=== PATIENT | male | born 1985 | race Caucasian/White ===

== ENCOUNTER 2019-10-23 06:36 | Day surgery (SDC) | payer OTHER ==
[2019-10-16 09:11] LABS: ABSOLUTE BASOPHILS # (AUTO) 0.1 10^3/uL (0.0-0.2); ABSOLUTE EOSINOPHILS # (AUTO) 0.3 10^3/uL (0.0-0.6); ABSOLUTE LYMPHOCYTES (AUTO) 1.4 10^3/uL (0.5-4.7); ABSOLUTE MONOCYTES (AUTO) 0.6 10^3/uL (0.1-1.4); BASOPHILS % (AUTO) 1.2 % (0-2); EOSINOPHILS % (AUTO) 3.9 % (0-6); HEMATOCRIT 50.7 % (37.9-51.0); LYMPHOCYTES % (AUTO) 18.3 % (13-45); MEAN CORPUSCULAR HEMOGLOBIN 30.7 pg (27.0-33.4); MEAN CORPUSCULAR HGB CONC 33.5 g/dL (32.0-36.0); MEAN CORPUSCULAR VOLUME 92 fl (80-97); MONOCYTES % (AUTO) 8.6 % (3-13); PLATELET COUNT 298 10^3/uL (150-450); RED BLOOD COUNT 5.53 10^6/uL (4.35-5.55); RED CELL DISTRIBUTION WIDTH 14.5 % (11.5-14.0); TOTAL CELLS COUNTED % (AUTO) 100 %; WHITE BLOOD COUNT 7.4 10^3/uL (4.0-10.5)
[2019-10-16 09:34] LABS: ANION GAP 11 (5-19); BLOOD UREA NITROGEN 13 mg/dL (7-20); CALCIUM 8.7 mg/dL (8.4-10.2); CARBON DIOXIDE 25 mmol/L (22-30); CHLORIDE 101 mmol/L (98-107); GLUCOSE 149 mg/dL (75-110); POTASSIUM 5.4 mmol/L (3.6-5.0)
[~2019-10-23 06:36] MED LIST: CEFAZOLIN SODIUM 2 GM in DEXTROSE 5%-WATER 100 ML IV PRN; DEXAMETHASONE SOD PHOSPHATE INJ 4 MG/1 ML VIAL ONE; FENTANYL CITRATE INJ/PF 100 MCG/2 ML AMPUL ONE; LACTATED RINGERS 1000 ML IV PRN; LIDOCAINE 0.5% INJ-PF (5 MG/ML) 50 ML SDV SUBCUT PRN; MIDAZOLAM 2 MG/2 ML INJ ONE; ONDANSETRON HCL INJ/PF 4 MG/2 ML SDV ONE; PROPOFOL INJ 200 MG/20 ML VIAL IV ONE
[2019-10-23] MEDS ORDERED: BUPIVACAINE HCL 0.5 % INJ/PF 30 ML SDV ONE (07:13)
[2019-10-23] MEDS ORDERED: MORPHINE SULFATE 10 MG/ML INJ IV PRN (09:26)
[2019-10-23] MEDS ORDERED: ONDANSETRON HCL INJ/PF 4 MG/2 ML SDV IV PRN ×2 (09:26→10:40)
[2019-10-23] MEDS ORDERED: FENTANYL CITRATE INJ/PF 100 MCG/2 ML AMPUL IV PRN ×3 (09:26)
[2019-10-23] MEDS ORDERED: PROMETHAZINE HCL INJ 25 MG/1 ML VIAL IV PRN ×2 (09:26)
[2019-10-23] MEDS ORDERED: MEPERIDINE HCL/PF INJ 25 MG/1 ML DISP.SYRIN IV PRN (09:26)
[2019-10-23] MEDS ORDERED: DIPHENHYDRAMINE HCL 50 MG/ML VIAL IV PRN (09:26)
[2019-10-23] MEDS ORDERED: OXYCODONE-ACETAMINOPHEN 5-325 MG TABLET PO PRN (10:40)
[2019-10-23] MEDS ORDERED: HYDROMORPHONE HCL INJ/PF 2 MG/ML AMPULE IV PRN (10:40)
--- NOTE | 2019-10-23 10:40 | Operative Report ---
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 Patient had extensive work-up including MRI with MRI on exertion along with nerve studies. MRI demonstrated increased signal throughout the forearm musculature concerning for possible exertional compartment syndrome however on examination patient did not have findings suggesting forearm compartment syndrome. However had exquisite pain 4 cm distal to the lateral epicondyle consistent with radial tunnel. Attempted conservative measures including occupational therapy and multiple injections. Injections did provide patient significant resolution of his symptoms. At that point we discussed treatment options given the fact patient had failed over 9 months of conservative treatment decision was made to proceed with a radial tunnel release. Procedure In Detail: Patient was seen and evaluated in the preoperative holding area. The RIGHT upper extremity was initialized and marked. Patient received 2g of Ancef IV for bacterial prophylaxis. Patient was taken back to the operative room where transferred to the operative table and placed under general anesthesia. Once they were adequately anesthetized a nonsterile tourniquet was placed on the upper extremity. A surgical team debriefing was performed ensuring all instrumentation was available, the surgical procedure was discussed with possible concerns reviewed. The upper extremity was prepped with chlorhexidine and alcohol and draped in a sterile fashion. A timeout was done identifying correct patient, procedure and extremity everyone in attendance agree with this and verbalized no concerns. The extremity was exsanguinated the tourniquet was inflated to 250 mmHg. Incision was marked in preoperative holding area determining the interval between the brachioradialis and ECRB. This interval was utilized. Posterior cutaneous nerve of the forearm was identified further confirming appropriate interval. Fascia was incised ECRB was retracted radially and BR ulnarly. Superficial radial nerve was identified and retracted. Nerve to the ECRB was identified as well. Neurostimulator was placed along the nerve to the ECRB to confirm anatomy. The tendon of the ECRB was released in line with projected PIN trajectory. A portion of the ECRB was also released in a proximal direction given patient's symptoms of lateral epicondylitis. Once the ECRB was adequate released the underlying supinator was identified. Recurrent lesion Nicholas branches were isolated and tied with 2-0 Vicryl suture. PIN was then identified and confirmed with nerve stimulator. There is significant compression of the PIN nerve as it entered the supinator. Meticulously the supinator tendinous arch was released to further expose the PIN as it entered supinator. The supinator was released and PIN neurolysed from a proximal to distal direction. Supinator branches were identified and protected. Blunt finger dissection was performed proximally and distally to ensure adequate release. External neural lysis was also performed to ensure adequate release. There was no evidence of compression with pronation/supination. Tourniquet was deflated. Any peripheral veins were coagulated bipolar cautery. There was no significant bleeding appreciated. Wound was copiously irrigated with normal saline. 20 cc of 0.5% bupivacaine without epinephrine was injected for postoperative pain control. Nerve stimulator was utilized along the PIN and ECRB to confirm conductivity. Subcutaneous tissues were closed with interrupted 3-0 Monocryl suture. Skin was closed with running subcuticular 4-0 Monocryl reinforced with Dermabond and Steri-Strips. Patient was placed in a soft dressing. Sponge counts, instrument counts, needle counts were correct. Patient was then awoken from anesthesia. Transferred from the operating room table to the operating room stretcher. There was no intraoperative complications patient tolerated procedure well stable to PACU. Postoperative plan: Patient follow in the office in 2 weeks for wound check. We will begin gentle elbow and wrist range of motion but no heavy lifting.
--- NOTE | 2019-10-23 10:42 | Discharge Summary ---
Discharge Summary (SDC) - Discharge Final Diagnosis: Right forearm radial tunnel syndrome Date of Surgery: 10/23/19 Discharge Date: 10/23/19 Condition: Good Treatment or Instructions: Schedule Follow Up w/ Dr. Pasha Jiménez @ [facility] for Surgery to be seen in 10-14 days or as scheduled [place]: [place]: [place]: May remove dressing on postop day #3, keep incision covered and dry. Ice and elevate May begin finger range of motion attempting to make full fist. Stool softener of choice when on pain medication. USE OF [id number] IBUPROFEN: Ibuprofen (Advil, Nuprin, Medipren, Motrin IB) is a medication for fever and pain control. In addition, it has anti- inflammatory effects which may be beneficial, especially in the treatment of injuries. It's best to take ibuprofen with food. Persons with ulcer disease or allergy to aspirin should notify their physician of this before taking ibuprofen. Ibuprofen can be given every four to six hours, for a total of four doses daily. Age Pain or fever dose Antiinflammatory dose 6-8 yr 200 mg (1 tab) 200 mg (1 tab) 9-11 yr 200 mg (1 tab) 200-400 mg (1-2 tab) 11-14 yr 200-400 mg (1-2 tab) 400 mg (2 tab) 15-adult 400 mg (2 tab) 600 mg (3 tab) ORAL NARCOTIC MEDICATION: You have been given a prescription for pain control. This medication is a narcotic. It's best taken with food, as nausea can result if taken on an empty stomach. Don't operate machinery or drive within six hours of taking this medication. Do not combine this medicine with alcohol, or with any medication which can cause sedation (such as cold tablets or sleeping pills) unless you get permission from the physician. Narcotics tend to cause constipation. If possible, drink plenty of fluids and eat a diet high in fiber and fruits. Please be aware that prescription narcotics also have the potential for abuse. People become addicted to these medications because of the general sense of wellbeing that they induce. This feeling along with a significant reduction in tension, anxiety, and aggression provides a stimulating seductive quality to these drugs. Once your pain is under control, we encourage you to discard your unused narcotics. Prescriptions: Ketorolac Tromethamine [Toradol 10 mg Tablet] 10 mg PO Q8HP PRN #12 tablet PRN Reason: Oxycodone HCl [Oxycontin Sr 10 mg Tablet] 10 mg PO BID PRN #10 tab.sr.12h PRN Reason: Oxycodone HCl/Acetaminophen [Percocet 7.5-325 mg Tablet] 1 tab PO Q6 PRN #25 tab PRN Reason: Ondansetron HCl [Zofran] 8 mg PO Q8 PRN #20 tablet PRN Reason: Discharge Diet: As Tolerated Respiratory Treatments at Home: Deep Breathing/Coughing, Incentive Spirometer Discharge Activity: No Lifting Over 10 Pounds, No Lifting/Push/Pulling Report the Following to Your Physician Immediately: Fever over 101 Degrees, Unusual Bleeding, Redness, Swelling, Warmth, Increased Soreness
[2019-10-23] MEDS ORDERED: MORPHINE SULFATE 10 MG/ML INJ ONE (10:57)
[2019-10-23] MEDS ORDERED: LORAZEPAM INJ 2 MG/1 ML VIAL ONE (11:13)
[2019-10-23] MEDS: HYDROMORPHONE HCL INJ/PF 2 MG/ML AMPULE ONE ×3 (11:28→12:48)
[2019-10-23] MEDS ORDERED: OXYCODONE-ACETAMINOPHEN 5-325 MG TABLET ONE (11:38)
[2019-10-23] MEDS ORDERED: HYDROMORPHONE HCL INJ/PF 2 MG/ML AMPULE ONE (12:44)
[2019-10-23] MEDS ORDERED: FENTANYL CITRATE INJ/PF 100 MCG/2 ML AMPUL ONE (12:57)
[2019-10-23] MEDS ORDERED: SUCCINYLCHOLINE CHLORIDE INJ 200 MG/10 ML VIAL ONE (13:48)
[2019-10-23 14:07] VITALS: BP 128/72
== END 2019-10-23 13:50 | disposition home or self-care (01) ==
LOC: OROUT 06:36
PROVIDERS: ATTEND Orthopaedic Surgery
DX: G56.31 Lesion of radial nerve, right upper limb (principal); Z79.899 Other long term (current) drug therapy; Z79.51 Long term (current) use of inhaled steroids; Z87.891 Personal history of nicotine dependence
CPT/HCPCS: 36415 ×2; 84132; 85025; 80048; 64708; J2250; J3490; J0690; J1100; J3010; J2270; J1170; J2060; J0330; J2405; J7060; J2704; 1810

== ENCOUNTER 2020-02-12 08:25 | Day surgery (SDC) | payer OTHER ==
[2020-02-07 11:09] LABS: ABSOLUTE EOSINOPHILS # (AUTO) 0.2 10^3/uL (0.0-0.6); ABSOLUTE LYMPHOCYTES (AUTO) 1.5 10^3/uL (0.5-4.7); ABSOLUTE MONOCYTES (AUTO) 0.7 10^3/uL (0.1-1.4); ABSOLUTE NEUT (AUTO) 4.3 10^3/uL (1.7-8.2); BASOPHILS % (AUTO) 0.6 % (0-2); EOSINOPHILS % (AUTO) 3.1 % (0-6); HEMATOCRIT 50.7 % (37.9-51.0); HEMOGLOBIN 17.3 g/dL (13.5-17.0); MEAN CORPUSCULAR HEMOGLOBIN 30.7 pg (27.0-33.4); MEAN CORPUSCULAR HGB CONC 34.2 g/dL (32.0-36.0); MEAN CORPUSCULAR VOLUME 90 fl (80-97); PLATELET COUNT 257 10^3/uL (150-450); RED BLOOD COUNT 5.65 10^6/uL (4.35-5.55); RED CELL DISTRIBUTION WIDTH 14.8 % (11.5-14.0); SEGMENTED NEUTROPHILS % (AUTO) 64.3 % (42-78); TOTAL CELLS COUNTED % (AUTO) 100 %; WHITE BLOOD COUNT 6.6 10^3/uL (4.0-10.5)
[2020-02-07 11:31] LABS: ANION GAP 15 (5-19); BLOOD UREA NITROGEN 14 mg/dL (7-20); CALCIUM 9.2 mg/dL (8.4-10.2); CARBON DIOXIDE 25 mmol/L (22-30); CHLORIDE 103 mmol/L (98-107); GLUCOSE 105 mg/dL (75-110); POTASSIUM 4.8 mmol/L (3.6-5.0)
--- NOTE | 2020-02-07 13:31 | RADIOLOGY REPORT (SQ) ---
EXAM DESCRIPTION: CHEST PA/LATERAL IMAGES COMPLETED DATE/TIME: 02/07/2020 1:02 pm REASON FOR STUDY: PRE-OP COMPARISON: None. EXAM PARAMETERS: NUMBER OF VIEWS: two views TECHNIQUE: Digital Frontal and Lateral radiographic views of the chest acquired. RADIATION DOSE: NA LIMITATIONS: none FINDINGS: LUNGS AND PLEURA: No opacities, masses or pneumothorax. No pleural effusion. MEDIASTINUM AND HILAR STRUCTURES: No masses or contour abnormalities. HEART AND VASCULAR STRUCTURES: Heart normal size. No evidence for failure. BONES: No acute findings. HARDWARE: None in the chest. OTHER: No other significant finding. IMPRESSION: NO SIGNIFICANT RADIOGRAPHIC FINDING IN THE CHEST. TECHNICAL DOCUMENTATION: JOB ID: [id number] 2010 [employer]- All Rights Reserved Reading location - IP/workstation name: [email or web address]
--- NOTE | 2020-02-07 17:24 | EKG REPORT ---
SEVERITY:- BORDERLINE ECG - SINUS RHYTHM PROBABLE LEFT ATRIAL ABNORMALITY : Confirmed by: Ashley Polanco MD 07-Feb-2020 17:24:22
[~2020-02-12 08:25] MED LIST changes: +CEFAZOLIN 2 GM/D5W RTU 2 GM/50 ML RTUPB IV ONE; +CEFAZOLIN 2 GM/D5W RTU 2 GM/50 ML RTUPB IV PRN; -CEFAZOLIN SODIUM 2 GM in DEXTROSE 5%-WATER 100 ML IV PRN
--- NOTE | 2020-02-12 09:38 | RADIOLOGY REPORT (SQ) ---
EXAM DESCRIPTION: ELBOW LEFT OVER 2 VIEWS IMAGES COMPLETED DATE/TIME: 02/12/2020 9:10 am REASON FOR STUDY: pre op G56.30 LESION OF RADIAL NERVE, UNSPECIFIED UPPER LIMB COMPARISON: None. NUMBER OF VIEWS: Four views. TECHNIQUE: AP, lateral, and both oblique radiographic images acquired of the left elbow. LIMITATIONS: None. FINDINGS: MINERALIZATION: Normal. BONES: No acute fracture or dislocation. No worrisome bone lesions. JOINT: No effusion. SOFT TISSUES: No soft tissue swelling. No foreign body. OTHER: No other significant finding. IMPRESSION: NEGATIVE STUDY OF THE LEFT ELBOW. NO RADIOGRAPHIC EVIDENCE OF ACUTE INJURY. TECHNICAL DOCUMENTATION: JOB ID: [id number] 2010 [email or web address]- All Rights Reserved Reading location - IP/workstation name: [email or web address]
[2020-02-12] MEDS ORDERED: ONDANSETRON HCL INJ/PF 4 MG/2 ML SDV IV PRN ×2 (11:08→12:15)
[2020-02-12] MEDS ORDERED: FENTANYL CITRATE INJ/PF 100 MCG/2 ML AMPUL IV PRN ×3 (11:08)
[2020-02-12] MEDS ORDERED: MORPHINE SULFATE 10 MG/ML INJ IV PRN ×2 (11:08→12:40)
[2020-02-12] MEDS ORDERED: MEPERIDINE HCL/PF INJ 25 MG/1 ML DISP.SYRIN IV PRN (11:08)
[2020-02-12] MEDS ORDERED: DIPHENHYDRAMINE HCL 50 MG/ML VIAL IV PRN (11:08)
[2020-02-12] MEDS ORDERED: PROMETHAZINE HCL INJ 25 MG/1 ML VIAL IV PRN ×2 (11:08)
[2020-02-12] MEDS: BUPIVACAINE HCL 0.5 % INJ/PF 30 ML SDV ONE ×2 (11:15→12:08)
[2020-02-12] MEDS ORDERED: KETAMINE HCL INJ 500 MG/10 ML VIAL ONE (11:37)
[2020-02-12] MEDS ORDERED: HYDROMORPHONE HCL INJ/PF 2 MG/ML AMPULE IV PRN (12:15)
[2020-02-12] MEDS ORDERED: OXYCODONE-ACETAMINOPHEN 5-325 MG TABLET PO PRN (12:15)
--- NOTE | 2020-02-12 12:15 | Discharge Summary ---
Discharge Summary (SDC) - Discharge Final Diagnosis: Left Radial Tunnel Syndrome Date of Surgery: 02/12/20 Discharge Date: 02/12/20 Condition: Good Treatment or Instructions: Schedule Follow Up w/ Dr. Pasha Jiménez @ [facility] for Surgery to be seen in 10-14 days or as scheduled [place]: [place]: [place]: May remove dressing on postop day #3, keep incision covered and dry. Ice and elevate May begin finger range of motion attempting to make full fist. Stool softener of choice when on pain medication. USE OF [id number] IBUPROFEN: Ibuprofen (Advil, Nuprin, Medipren, Motrin IB) is a medication for fever and pain control. In addition, it has anti- inflammatory effects which may be beneficial, especially in the treatment of injuries. It's best to take ibuprofen with food. Persons with ulcer disease or allergy to aspirin should notify their physician of this before taking ibuprofen. Ibuprofen can be given every four to six hours, for a total of four doses daily. Age Pain or fever dose Antiinflammatory dose 6-8 yr 200 mg (1 tab) 200 mg (1 tab) 9-11 yr 200 mg (1 tab) 200-400 mg (1-2 tab) 11-14 yr 200-400 mg (1-2 tab) 400 mg (2 tab) 15-adult 400 mg (2 tab) 600 mg (3 tab) ORAL NARCOTIC MEDICATION: You have been given a prescription for pain control. This medication is a narcotic. It's best taken with food, as nausea can result if taken on an empty stomach. Don't operate machinery or drive within six hours of taking this medication. Do not combine this medicine with alcohol, or with any medication which can cause sedation (such as cold tablets or sleeping pills) unless you get permission from the physician. Narcotics tend to cause constipation. If possible, drink plenty of fluids and eat a diet high in fiber and fruits. Please be aware that prescription narcotics also have the potential for abuse. People become addicted to these medications because of the general sense of wellbeing that they induce. This feeling along with a significant reduction in tension, anxiety, and aggression provides a stimulating seductive quality to these drugs. Once your pain is under control, we encourage you to discard your unused narcotics. Prescriptions: Ketorolac Tromethamine [Toradol 10 mg Tablet] 10 mg PO Q8HP PRN #12 tablet PRN Reason: Oxycodone HCl [Oxycontin Sr 10 mg Tablet] 10 mg PO Q12 PRN #10 tab.sr.12h PRN Reason: Oxycodone HCl/Acetaminophen [Percocet 7.5-325 mg Tablet] 1 tab PO Q6 PRN #25 tab PRN Reason: Ondansetron [Zofran Odt 4 mg Tablet] 4 mg PO Q6 PRN #30 tab.rapdis PRN Reason: Discharge Diet: As Tolerated Respiratory Treatments at Home: Deep Breathing/Coughing, Incentive Spirometer Discharge Activity: No Lifting Over 10 Pounds, No Lifting/Push/Pulling Report the Following to Your Physician Immediately: Fever over 101 Degrees, Unusual Bleeding, Redness, Swelling, Warmth, Increased Soreness
[2020-02-12] MEDS ORDERED: MORPHINE SULFATE INJ PF 10 MG/10 ML SDV ONE (12:29)
[2020-02-12] MEDS: LORAZEPAM INJ 2 MG/1 ML VIAL ONE ×2 (12:29→12:31)
[2020-02-12] MEDS: MORPHINE SULFATE 10 MG/ML INJ ONE ×5 (12:30→12:42)
[2020-02-12] MEDS ORDERED: LORAZEPAM INJ 2 MG/1 ML VIAL IV PRN (12:40)
[2020-02-12] MEDS ORDERED: ACETAMINOPHEN 1,000 MG/100 ML RTUPB IV ONE (13:09)
[2020-02-12] MEDS ORDERED: OXYCODONE-ACETAMINOPHEN 5-325 MG TABLET ONE (13:28)
[2020-02-12] MEDS ORDERED: SUCCINYLCHOLINE CHLORIDE INJ 200 MG/10 ML VIAL ONE (14:41)
[2020-02-12 14:59] VITALS: BP 140/92
[2020-02-12] MEDS ORDERED: FENTANYL CITRATE INJ/PF 100 MCG/2 ML AMPUL ONE (16:07)
--- NOTE | 2020-02-12 16:09 | Operative Report ---
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 Patient had extensive work-up including MRI along with nerve studies. MRI demonstrated changes consistent with possible PIN compression patient had exquisite pain 4 cm distal to the lateral epicondyle consistent with radial tunnel. Patient underwent right radial tunnel release with good results after attempting conservative measures including occupational therapy and multiple injections. Injections did provide patient significant resolution of his symptoms. At that point we discussed treatment options given the fact patient had failed over 9 months of conservative treatment decision was made to proceed with a radial tunnel release. Procedure In Detail: Patient was seen and evaluated in the preoperative holding area. The LEFT upper extremity was initialized and marked. Patient received 2g of Ancef IV for bacterial prophylaxis. Patient was taken back to the operative room where transferred to the operative table and placed under general anesthesia. Once they were adequately anesthetized a nonsterile tourniquet was placed on the upper extremity. A surgical team debriefing was performed ensuring all instrumentation was available, the surgical procedure was discussed with possible concerns reviewed. The upper extremity was prepped with chlorhexidine and alcohol and draped in a sterile fashion. A timeout was done identifying correct patient, procedure and extremity everyone in attendance agree with this and verbalized no concerns. The extremity was exsanguinated the tourniquet was inflated to 250 mmHg. Incision was marked in preoperative holding area determining the interval between the brachioradialis and ECRB. This interval was utilized. Posterior cutaneous nerve of the forearm was identified further confirming appropriate interval. Fascia was incised ECRB was retracted radially and BR ulnarly. Superficial radial nerve was identified and retracted. Nerve to the ECRB was identified as well. The tendon of the ECRB was released in line with projected PIN trajectory. A portion of the ECRB was also released in a proximal direction given patient's symptoms of lateral epicondylitis. Once the ECRB was adequate released the underlying supinator was identified. Recurrent lesion Nicholas branches were isolated and tied with 2-0 Vicryl suture. There was significant compression of the PIN nerve as it entered the supinator. Meticulously the supinator tendinous arch was released to further expose the PIN as it entered supinator. The supinator was released and PIN neurolysed from a proximal to distal direction. Supinator branches were identified and protected. Blunt finger dissection was performed proximally and distally to ensure adequate release. External neural lysis confirmed no residual compression noted.. There was no evidence of compression with pronation/supination. Tourniquet was deflated. Any peripheral veins were coagulated bipolar cautery. There was no significant bleeding appreciated. Wound was copiously irrigated with normal saline. 30 cc of 0.5% bupivacaine without epinephrine was injected for postoperative pain control. Subcutaneous tissues were closed with interrupted 3-0 Monocryl suture. Skin was closed with running subcuticular 4-0 Monocryl reinforced with Dermabond and Steri-Strips. Patient was placed in a soft dressing. Sponge counts, instrument counts, needle counts were correct. Patient was then awoken from anesthesia. Transferred from the operating room table to the op erating room stretcher. There was no intraoperative complications patient tolerated procedure well stable to PACU. Postoperative plan: Patient follow in the office in 2 weeks for wound check. We will begin gentle elbow and wrist range of motion but no heavy lifting.
== END 2020-02-12 14:35 | disposition home or self-care (01) ==
LOC: OROUT 08:25
PROVIDERS: ATTEND Orthopaedic Surgery
DX: G56.32 Lesion of radial nerve, left upper limb (principal); Z03.818 Encounter for observation for suspected exposure to other biological agents ruled out; Z79.899 Other long term (current) drug therapy; M77.9 Enthesopathy, unspecified
CPT/HCPCS: 93005; 36415; 85025; 87635; 80048; 71046; 73080; 93010; 64708; 24358; J2250; J3490; J1100; J3010; J2270; J2060; J0330; J2405; J2704; J0690; J0131; C9803; J2274

== ENCOUNTER 2020-04-18 03:45 | Emergency (ER) | payer OTHER ==
[2020-04-18] MEDS ORDERED: ONDANSETRON HCL INJ/PF 4 MG/2 ML SDV IV ONE ×2 (04:42→07:26)
[2020-04-18] MEDS ORDERED: NORMAL SALINE 1000 ML 1,000 ML IV ONE ×3 (04:42→10:13)
[2020-04-18] MEDS ORDERED: MORPHINE SULFATE 10 MG/ML INJ IV ONE ×3 (04:42→10:13)
--- NOTE | 2020-04-18 04:45 | ER Document Report ---
ED GI/ - General Chief Complaint: Abdominal Pain Stated Complaint: RIGHT SIDE PAIN Time Seen by Provider: 04/18/20 04:36 Notes: Patient is a 34-year-old male that comes emergency department for chief complaint of right middle lower abdominal pain. He states the pain started in the morning and became slowly progressively much worse, he states pain is now severe and feels like a stabbing knife. Pain is constant. He reports nausea but denies vomiting. He denies abnormal bowel movements, fever, or injury. He denies testicle pain. He denies flank pain. Patient denies any abdominal surgeries. Only past medical history reported is rhabdomyolysis on several occasions, patient states he has been trying to stay hydrated during the day. Patient is an active duty Marine. TRAVEL OUTSIDE OF THE [place] IN LAST 30 DAYS: No - Related Data Allergies/Adverse Reactions: No Known Allergies Allergy (Verified 02/12/20 08:54) Home Medications: sonata, triazolam Past Medical History - Social History Smoking Status: Former Smoker Frequency of alcohol use: None Family History: Reviewed & Not Pertinent Patient has homicidal ideation: No - Past Medical History Cardiac Medical History: Denies: Hx Coronary Artery Disease, Hx Heart Attack, Hx Hypertension Pulmonary Medical History: Reports: Hx Asthma - MILD SEASONAL Denies: Hx Bronchitis, Hx COPD, Hx Pneumonia Neurological Medical History: Reports: Hx Migraine. Denies: Hx Cerebrovascular Accident, Hx Seizures Musculoskeletal Medical History: Denies Hx Arthritis Past Surgical History: Reports: Hx Tonsillectomy - Immunizations Hx Diphtheria, Pertussis, Tetanus Vaccination: Yes Physical Exam - Vital signs Vitals: Temp Pulse Resp BP Pulse Ox 98.0 F 106 H 18 168/94 H 100 04/18/20 03:51 04/18/20 03:51 04/18/20 03:51 04/18/20 03:51 04/18/20 03:51 Course - Vital Signs Vital signs: Temp Pulse Resp BP Pulse Ox 98.0 F 106 H 18 168/94 H 100 04/18/20 03:51 04/18/20 03:51 04/18/20 03:51 04/18/20 03:51 04/18/20 03:51
[2020-04-18 05:09] LABS: HEMATOCRIT 52.1 % (37.9-51.0); HEMOGLOBIN 17.6 g/dL (13.5-17.0); MEAN CORPUSCULAR HEMOGLOBIN 30.4 pg (27.0-33.4); MEAN CORPUSCULAR HGB CONC 33.8 g/dL (32.0-36.0); MEAN CORPUSCULAR VOLUME 90 fl (80-97); PLATELET COUNT 358 10^3/uL (150-450); RED BLOOD COUNT 5.79 10^6/uL (4.35-5.55); RED CELL DISTRIBUTION WIDTH 14.8 % (11.5-14.0); WHITE BLOOD COUNT 21.1 10^3/uL (4.0-10.5)
[2020-04-18 05:17] LABS: ALBUMIN 4.6 g/dL (3.5-5.0); ALKALINE PHOSPHATASE 46 U/L (38-126); ANION GAP 10 (5-19); ASPARTATE AMINO TRANSFERASE 66 U/L (17-59); BILIRUBIN,DIRECT 0.2 mg/dL (0.0-0.4); BILIRUBIN,TOTAL 0.9 mg/dL (0.2-1.3); BLOOD UREA NITROGEN 22 mg/dL (7-20); CALCIUM 9.7 mg/dL (8.4-10.2); CARBON DIOXIDE 27 mmol/L (22-30); CHLORIDE 104 mmol/L (98-107); CREATINE KINASE 1565 U/L (55-170); GLUCOSE 100 mg/dL (75-110); POTASSIUM 5.6 mmol/L (3.6-5.0); TOTAL PROTEIN 7.2 g/dL (6.3-8.2)
[2020-04-18 05:33] LABS: ABSOLUTE LYMPHOCYTES# (MANUAL) 2.7 10^3/uL (0.5-4.7); ABSOLUTE MONOCYTES # (MANUAL) 0.2 10^3/uL (0.1-1.4); BAND NEUTROPHILS % (MANUAL) 2 % (3-5); BASOPHILS % (MANUAL) 0 % (0-2); EOSINOPHILS % (MANUAL) 2 % (0-6); LYMPHOCYTES % (MANUAL) 11 % (13-45); MONOCYTES % (MANUAL) 1 % (3-13); SEGMENTED NEUTROPHILS % (MAN) 81 % (42-78); TOTAL CELLS COUNTED 100
[2020-04-18 05:34] LABS: ANISOCYTOSIS SLIGHT; PLATELET COMMENT ADEQUATE
[2020-04-18 05:35] LABS: MYELOCYTES % (MANUAL) 1 % (0); TEAR DROP CELLS SLIGHT
--- NOTE | 2020-04-18 06:00 | RADIOLOGY REPORT (SQ) ---
EXAM DESCRIPTION: CT ABDOMEN PELVIS WITH IV CONTRAST COMPLETED DATE/TME: 04/18/2020 04:44 CLINICAL HISTORY: RLQ pain; appendicitis? COMPARISON: None Available. TECHNIQUE: CT of the abdomen and pelvis performed following IV administration of 70 mL Omnipaque 350. FINDINGS: Lung Bases: The visualized lung bases are clear. Bones: No destructive bone lesions identified. Abdomen: Liver: The liver has normal size and density. No intrahepatic biliary dilatation. Gallbladder: No calcified gallstones. Spleen, Pancreas, and Adrenal Glands: The spleen, pancreas, and adrenal glands are unremarkable. Kidneys: No hydronephrosis or obstructing calculus. Vasculature: Aortoiliac atherosclerosis. IVC is unremarkable. The portal vein is patent. The proximal visceral and renal arteries are patent. Stomach: The stomach and duodenum have normal course. Other: No free intraperitoneal air. No free fluid or lymphadenopathy. Pelvis: Bladder: Urinary bladder is unremarkable. Bowel: No dilated loops of large or small bowel. Appendix: Normal appendix. Pelvis: Prostate is not enlarged. IMPRESSION: 1. No acute inflammatory or obstructive process identified. Normal appendix. This exam was performed according to our departmental dose-optimization program, which includes automated exposure control, adjustment of the mA and/or kV according to patient size and/or use of iterative reconstruction technique.
--- NOTE | 2020-04-18 06:02 | ER Document Report ---
ED Medical Screen (RME) - General Chief Complaint: Abdominal Pain Stated Complaint: RIGHT SIDE PAIN Time Seen by Provider: 04/18/20 04:36 Notes: Patient is a 34-year-old male that comes emergency department for chief complaint of right middle lower abdominal pain. He comes by EMS, received Toradol. He states the pain started in the morning and became slowly progressively much worse, he states pain is now severe and feels like a stabbing knife. Pain is constant. He reports nausea but denies vomiting. He denies abnormal bowel movements, fever, or injury. He denies testicle pain. He denies flank pain. Patient denies any abdominal surgeries. Only past medical history reported is rhabdomyolysis on several occasions, patient states he has been trying to stay hydrated during the day. Patient is an active duty [employer]. TRAVEL OUTSIDE OF THE [place] IN LAST 30 DAYS: No - Related Data Allergies/Adverse Reactions: No Known Allergies Allergy (Verified 02/12/20 08:54) Home Medications: sonata, triazolam Past Medical History - Social History Frequency of alcohol use: None - Past Medical History Cardiac Medical History: Denies: Hx Coronary Artery Disease, Hx Heart Attack, Hx Hypertension Pulmonary Medical History: Reports: Hx Asthma - MILD SEASONAL Denies: Hx Bronchitis, Hx COPD, Hx Pneumonia Neurological Medical History: Reports: Hx Migraine. Denies: Hx Cerebrovascular Accident, Hx Seizures Musculoskeltal Medical History: Denies Hx Arthritis Past Surgical History: Reports: Hx Tonsillectomy - Immunizations Hx Diphtheria, Pertussis, Tetanus Vaccination: Yes Physical Exam - Vital signs Vitals: Temp Pulse Resp BP Pulse Ox 98.0 F 106 H 18 168/94 H 100 04/18/20 03:51 04/18/20 03:51 04/18/20 03:51 04/18/20 03:51 04/18/20 03:51 - Abdominal Tenderness: Tender - Tender in the general lower abdomen especially in the right lower quadrant on exam. Exam limited by sitting position Course - Re-evaluation Re-evalutation: Patient slightly pale, appears to be in obvious pain, is guarding his abdomen in the right mid to lower abdomen although exam is somewhat limited by triage. Highest clinical concern is for acute appendicitis. Work-up pending. I have greeted and performed a rapid initial assessment of this patient. A comprehensive ED assessment and evaluation of the patient, analysis of test results and completion of the medical decision making process will be conducted by additional ED providers. - Vital Signs Vital signs: Temp Pulse Resp BP Pulse Ox 98.0 F 106 H 18 168/94 H 100 04/18/20 03:51 04/18/20 03:51 04/18/20 03:51 04/18/20 03:51 04/18/20 03:51 - Laboratory Result Diagrams: 04/18/20 04:48 04/18/20 04:48 Laboratory results interpreted by me: 04/18/20 04/18/20 04:48 04:48 WBC 21.1 H RBC 5.79 H Hgb 17.6 H Hct 52.1 H RDW 14.8 H Seg Neuts % (Manual) 81 H Band Neutrophils % 2 L Lymphocytes % (Manual) 11 L Monocytes % (Manual) 1 L Myelocytes % 1 H Abs Neuts (Manual) 17.7 H Potassium 5.6 H BUN 22 H Creatinine 1.39 H Est GFR (MDRD) Non-Af 59 L AST 66 H ALT 53 H Creatine Kinase 1565 H Lipase 332.6 H
[2020-04-18 06:29] LABS: APPEARANCE,URINE CLEAR; BILIRUBIN,URINE SMALL (NEGATIVE); GLUCOSE, URINE NEGATIVE (NEGATIVE); KETONES,URINE TRACE mg/dL (NEGATIVE); LEUKOCYTE ESTERASE,URINE NEGATIVE (NEGATIVE); NITRITE,URINE NEGATIVE (NEGATIVE); PROTEIN,URINE 100 mg/dL (NEGATIVE); URINE SPECIFIC GRAVITY 1.056
[2020-04-18 06:36] LABS: COLOR,URINE DARK YELLOW
[2020-04-18] MEDS ORDERED: RINGERS SOLUTION,LACTATED 1,000 ML IV ONE (07:26)
[2020-04-18 10:30] LABS: ABSOLUTE EOSINOPHILS # (AUTO) 0.2 10^3/uL (0.0-0.6); ABSOLUTE LYMPHOCYTES (AUTO) 1.9 10^3/uL (0.5-4.7); ABSOLUTE MONOCYTES (AUTO) 0.9 10^3/uL (0.1-1.4); ABSOLUTE NEUT (AUTO) 8.3 10^3/uL (1.7-8.2); BASOPHILS % (AUTO) 0.4 % (0-2); EOSINOPHILS % (AUTO) 2.2 % (0-6); HEMATOCRIT 47.1 % (37.9-51.0); HEMOGLOBIN 15.8 g/dL (13.5-17.0); LYMPHOCYTES % (AUTO) 16.8 % (13-45); MEAN CORPUSCULAR HEMOGLOBIN 30.3 pg (27.0-33.4); MEAN CORPUSCULAR HGB CONC 33.6 g/dL (32.0-36.0); MEAN CORPUSCULAR VOLUME 90 fl (80-97); MONOCYTES % (AUTO) 7.6 % (3-13); PLATELET COUNT 309 10^3/uL (150-450); RED BLOOD COUNT 5.23 10^6/uL (4.35-5.55); RED CELL DISTRIBUTION WIDTH 14.9 % (11.5-14.0); TOTAL CELLS COUNTED % (AUTO) 100 %; WHITE BLOOD COUNT 11.4 10^3/uL (4.0-10.5)
[2020-04-18 10:49] LABS: ALBUMIN 3.9 g/dL (3.5-5.0); ALKALINE PHOSPHATASE 46 U/L (38-126); ANION GAP 6 (5-19); ASPARTATE AMINO TRANSFERASE 55 U/L (17-59); BILIRUBIN,DIRECT 0.1 mg/dL (0.0-0.4); BILIRUBIN,TOTAL 0.8 mg/dL (0.2-1.3); BLOOD UREA NITROGEN 19 mg/dL (7-20); CALCIUM 8.5 mg/dL (8.4-10.2); CARBON DIOXIDE 25 mmol/L (22-30); CHLORIDE 108 mmol/L (98-107); CREATINE KINASE 1414 U/L (55-170); GLUCOSE 97 mg/dL (75-110); POTASSIUM 5.1 mmol/L (3.6-5.0); TOTAL PROTEIN 6.4 g/dL (6.3-8.2)
[2020-04-18 11:02] LABS: PATH REVIEW PATHOLOGIST REVIEWED
--- NOTE | 2020-04-18 12:04 | RADIOLOGY REPORT (SQ) ---
EXAM DESCRIPTION: U/S ABDOMEN LTD W/DOPPLER IMAGES COMPLETED DATE/TIME: 04/18/2020 11:26 am REASON FOR STUDY: RUQ pain COMPARISON: Same day CT TECHNIQUE: Dynamic and static grayscale images acquired of the abdomen and recorded on PACS. Additio nal selected color Doppler and spectral images recorded. LIMITATIONS: None. FINDINGS: PANCREAS: Limited visualization due to bowel gas. LIVER: Enlarged measuring 18.9 cm. There are multiple small hyperechoic lesions, largest measuring 1 .5 cm. LIVER VASCULATURE: Normal directional flow of the main portal vein and hepatic veins. GALLBLADDER: Multiple adherent echogenic foci possibly adherent stones versus polyps, largest measuri ng 9 mm. No definitive posterior shadowing. No pericholecystic fluid. Gallbladder wall measures 3. 6 mm. ULTRASOUND-DETECTED OCONNELL'S SIGN: Negative. INTRAHEPATIC DUCTS AND COMMON DUCT: CBD and intrahepatic ducts normal caliber. No filling defects. INFERIOR VENA CAVA: Normal flow. AORTA: No aneurysm. RIGHT KIDNEY: Normal size measuring 13.3 cm. Normal echogenicity. No solid or suspicious masses. No hydronephrosis. No calcifications. PERITONEAL AND RIGHT PLEURAL SPACE: No ascites or effusions. OTHER: No other significant findings. IMPRESSION: 1. Multiple non-dependent echogenic foci within the gallbladder, likely gallbladder manuela yps, largest measuring 9 mm. Additional considerations include adherent stones or adenomyomatosis. 2. Borderline gallbladder wall thickening, likely secondary to decompressed state. No gallbladder d ilation, pericholecystic fluid or sonographic Oconnell's sign. 3. Scattered echogenic lesions throughout the liver, largest measure 1.5 mm, most likely hemangiomas but incompletely characterized. TECHNICAL DOCUMENTATION: JOB ID: [id number] [employer]- All Rights Reserved Reading location - IP/workstation name: [email or web address]
--- NOTE | 2020-04-18 12:53 | ER Document Report ---
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 Patient works at [employer] and was out in the field last night doing maneuvers "when he just started feeling bad". Patient states that he has had rhabdomyolysis 13-14 times in the past. He reports that he tried to use the bathroom as he was having lower abdominal cramping, there was a "hard plug and then a bunch of diarrhea and gas". Patient states he drank 2-1/2 gallons of water yesterday and he has had 3 L of fluid here and he reports he only was able to pee out a small amount of brown urine. Patient denies vomiting. TRAVEL OUTSIDE OF THE [place] IN LAST 30 DAYS: No - Related Data Allergies/Adverse Reactions: No Known Allergies Allergy (Verified 02/12/20 08:54) Home Medications: sonata, triazolam Past Medical History - General Information source: Patient - Social History Smoking Status: Former Smoker Cigarette use (# per day): No Frequency of alcohol use: None Drug Abuse: None Lives with: Family Family History: Reviewed & Not Pertinent Patient has homicidal ideation: No Pulmonary Medical History: Reports: Hx Asthma - MILD SEASONAL Neurological Medical History: Reports: Hx Migraine Past Surgical History: Reports: Hx Tonsillectomy - Immunizations Hx Diphtheria, Pertussis, Tetanus Vaccination: Yes Review of Systems - Review of Systems Constitutional: No symptoms reported EENT: No symptoms reported Cardiovascular: No symptoms reported Respiratory: No symptoms reported Gastrointestinal: See HPI, Abdominal pain, Diarrhea, Nausea. denies: Vomiting Genitourinary: No symptoms reported Male Genitourinary: No symptoms reported Musculoskeletal: No symptoms reported Skin: No symptoms reported Hematologic/Lymphatic: No symptoms reported Neurological/Psychological: No symptoms reported -: Yes All other systems reviewed and negative Physical Exam - Vital signs Vitals: Temp Pulse Resp BP Pulse Ox 98.0 F 106 H 18 168/94 H 100 04/18/20 03:51 04/18/20 03:51 04/18/20 03:51 04/18/20 03:51 04/18/20 03:51 - Notes Notes: Physical Exam: General: Alert, appears uncomfortable. HEENT: Normocephalic. Atraumatic. PERRL. Extraocular movements intact. Oropharynx clear. Neck: Supple. Non-tender. Respiratory: No respiratory distress. Clear and equal breath sounds bilaterally. Cardiovascular: Regular rate and rhythm. Abdominal: Right upper quadrant tenderness to palpation, positive guarding. No distension. Normal Bowel Sounds. Back: No gross abnormalities. Extremities: Moves all four extremities. Upper extremities: Normal inspection. Normal ROM. Lower extremities: Normal inspection. No edema. Normal ROM. Neurological: Normal cognition. AAOx4. Normal speech. Psychological: Normal affect. Normal Mood. Skin: Warm. Dry. Normal color. Course - Re-evaluation Re-evalutation: 04/18/20 12:48 Patient states he is feeling better less abdominal pain at this time. Patient is urinating after 4 L of IV fluids. - Vital Signs Vital signs: Temp Pulse Resp BP Pulse Ox 98.4 F 106 H 18 168/94 H 98 04/18/20 07:02 04/18/20 07:02 04/18/20 03:51 04/18/20 07:02 04/18/20 07:02 04/18/20 12:48 Vital signs stable. - Laboratory Result Diagrams: 04/18/20 10:09 04/18/20 10:09 Laboratory results interpreted by me: 04/18/20 04/18/20 04/18/20 04:48 04:48 05:45 WBC 21.1 H RBC 5.79 H Hgb 17.6 H Hct 52.1 H RDW 14.8 H Absolute Neuts (auto) Seg Neuts % (Manual) 81 H Band Neutrophils % 2 L Lymphocytes % (Manual) 11 L Monocytes % (Manual) 1 L Myelocytes % 1 H Abs Neuts (Manual) 17.7 H Potassium 5.6 H Chloride BUN 22 H Creatinine 1.39 H Est GFR (MDRD) Non-Af 59 L AST 66 H ALT 53 H Creatine Kinase 1565 H Lipase 332.6 H Urine Protein 100 H Urine Ketones TRACE H Urine Bilirubin SMALL H Urine Urobilinogen 4.0 H 04/18/20 04/18/20 10:09 10:09 WBC 11.4 H RBC Hgb Hct RDW 14.9 H Absolute Neuts (auto) 8.3 H Seg Neuts % (Manual) Band Neutrophils % Lymphocytes % (Manual) Monocytes % (Manual) Myelocytes % Abs Neuts (Manual) Potassium 5.1 H Chloride 108 H BUN Creatinine Est GFR (MDRD) Non-Af AST ALT Creatine Kinase 1414 H Lipase 380.5 H Urine Protein Urine Ketones Urine Bilirubin Urine Urobilinogen 04/18/20 12:48 There is been improvement in laboratories showing white blood cell count is down from 20,000-11.4 and his lipase has remained elevated at this time is 380. CPK has diminished from 1500 down to 1400. - Diagnostic Test Radiology reviewed: Image reviewed, Reports reviewed Radiology results interpreted by me: 04/18/20 12:50 CT abdomen and pelvis showed no acute process no appendicitis no obstructive process seen. Gallbladder ultrasound right upper quadrant series shows no cholecystitis or no gallbladder wall thickening but there is of note incidental findings of perhaps polyps within the gallbladder versus stones versus some other cystic structure. Also there is noted an hemangioma in 1 of the lobes of the liver. No obstruction seen. Discharge - Discharge Clinical Impression: Acute dehydration, Elevated CPK, Elevated lipase, Polyp of gallbladder Condition: Stable Disposition: HOME, SELF-CARE Instructions: Abdominal Pain ([facility]) Additional Instructions: Dehydration Dehydration can result from vomiting or diarrhea, fever, or decreased intake of fluids. If severe, hospitalization and intravenous fluids may be required. Most cases are treated at home with fluids by mouth. For the next 24 hours, drink lots of clear fluids. In mild cases, this can be soda pop or sports drinks. For more severe dehydration, the doctor may recommend special fluids such as Pedialyte or Lytren. Try to get three liters (3 quarts) of fluid per day. If vomiting occurs, continue to drink the fluids frequently (every 15 to 20 minutes), but in small amounts (one or two ounces). Depending on the type of dehydration, the doctor may prescribe antinausea medicine or potassium replacements. Call the doctor or return for re-examination if you become progressively we ak, vomit repeatedly, or have other new symptoms. Follow-up with primary care physician and avoid dehydration by drinking plenty of fluids and observing your activity and hot inclement weather. Also follow-up with gastro intestinal specialist regarding gallbladder polyp. I personally performed the services described in the documentation, reviewed and edited the documentation which was dictated to the scribe in my presence, and it accurately records my words and actions.
[2020-04-18 12:59] VITALS: BP 142/84
== END 2020-04-18 12:59 | disposition home or self-care (01) ==
LOC: ER 03:45
DX: E86.0 Dehydration (principal); R79.89 Other specified abnormal findings of blood chemistry; K82.4 Cholesterolosis of gallbladder; R10.9 Unspecified abdominal pain; R11.0 Nausea; Z87.891 Personal history of nicotine dependence; J45.909 Unspecified asthma, uncomplicated
CPT/HCPCS: 96376; 99285; 96361; 96374; 96375; 36415; 82550; 83690; 85025; 87070; 80053; 81001; 76705; 93976; 74177; J2270; J2405; J7030; J7120